=== PATIENT | female | born 1925 | race African-American/Black ===

== ENCOUNTER 2017-01-15 09:10 | Outpatient (CLI) | payer MEDICARE, BC ==
[2017-01-15 13:09] LABS: Anion Gap 16 mmol/L (10-20); BUN (Urea Nitrogen) 15 mg/dL (9.8-20.1); Calc. Creatinine Clearance 0 mL/min (70-130); Calcium 9.5 mg/dL (7.8-10.44); Carbon Dioxide 28 mmol/L (23-31); Chloride 103 mmol/L (98-107); Estimated GFR-MDRD 67; Glucose 98 mg/dL (83-110); Sodium 143 mmol/L (136-145)
== END 2017-01-15 09:11 | disposition home or self-care (01) ==
LOC: NAVSJIPCSP 09:10
PROVIDERS: ATTEND Internal Medicine
DX: E87.6 Hypokalemia (principal); I10 Essential (primary) hypertension
CPT/HCPCS: 36415; 80048

== ENCOUNTER 2017-04-17 10:56 | Outpatient (CLI) | payer MEDICARE, BC ==
[2017-04-17 12:47] LABS: Anion Gap 15 mmol/L (10-20); BUN (Urea Nitrogen) 13 mg/dL (9.8-20.1); Calc. Creatinine Clearance 0 mL/min (70-130); Calcium 9.7 mg/dL (7.8-10.44); Carbon Dioxide 28 mmol/L (23-31); Chloride 103 mmol/L (98-107); Estimated GFR-MDRD 74; Glucose 101 mg/dL (83-110); Potassium 3.8 mmol/L (3.5-5.1); Sodium 142 mmol/L (136-145)
== END 2017-04-17 10:57 | disposition home or self-care (01) ==
LOC: NAVSJIPCSP 10:56
PROVIDERS: ATTEND Internal Medicine
DX: E87.6 Hypokalemia (principal); I49.8 Other specified cardiac arrhythmias
CPT/HCPCS: 36415; 80048